=== PATIENT | male | born 1955 | race Caucasian/White ===

== ENCOUNTER → 2017-05-02 | Outpatient (CLI) | payer OTHER ==
--- NOTE | 2017-05-02 19:21 | CARD ---
APPROVED REPORT EXAM: Two-dimensional and M-mode echocardiogram with Doppler and color Doppler. Other Information Quality : Good INDICATION Cardiac Disease: CAD Congestive Heart Failure 2D DIMENSIONS Left Atrium(2D)3.7 (1.6-4.0cm)IVSd1.0 (0.7-1.1cm) Aortic Root(2D)2.6 (2.0-3.7cm)LVDd5.1 (3.9-5.9cm) LVOT Diameter2.1 (1.8-2.4cm)PWd1.0 (0.7-1.1cm) LVDs4.1 (2.5-4.0cm)FS (%) 19.6 % SV49.5 ml Aortic Valve AoV Peak Sekou.147.4cm/sAoV VTI26.7cm AO Peak GR.8.7mmHgLVOT Peak Sekou.101.5cm/s AO Mean GR.4mmHgAVA (VMAX)2.35cm2 TEVIN (VTI)2.50cm2 Mitral Valve MV E Olejgqdl45.6cm/sMV DECEL [id number] MV A Ohhkvgte89.2cm/sE/A Ratio0.8 Tricuspid Valve TR P. Nnvhnyma068zl/sRAP OLXQOAJS6whDa TR Peak Gr.[id number] Pulmonary Vein S1 Bupkhbio66.4cm/sD2 Fyqqgslf96.3cm/s LEFT VENTRICLE The left ventricle is normal size. There is normal left ventricular wall thickness. Left ventricle sy stolic function is mildly impaired. The Ejection Fraction is 40-45%. There is hypokinesis in the apex and apical septal wall. Transmitral Doppler flow pattern is Grade I-abnormal relaxation pattern. RIGHT VENTRICLE The right ventricle is normal size. The right ventricular systolic function is normal. ATRIA The left atrium size is normal. The right atrium size is normal. The interatrial septum is intact wit h no evidence for an atrial septal defect or patent foramen ovale as noted on 2-D or Doppler imaging. AORTIC VALVE The aortic valve is calcified but opens well. Doppler and Color Flow revealed no significant aortic r egurgitation. There is no significant aortic valvular stenosis. MITRAL VALVE The mitral valve is calcified but opens well. There is no evidence of mitral valve prolapse. There is no mitral valve stenosis. Doppler and Color Flow revealed no mitral valve regurgitation noted. TRICUSPID VALVE The tricuspid valve is normal in structure and function. Doppler and Color Flow revealed mild tricusp id regurgitation. The PA pressure was estimated at 21 mmHg. There is no tricuspid valve stenosis. PULMONIC VALVE The pulmonary valve is normal in structure and function. Doppler and Color Flow revealed no pulmonic valvular regurgitation. There is no pulmonic valvular stenosis. GREAT VESSELS The aortic root is normal in size. The ascending aorta is normal in size. The IVC is normal in size a nd collapses >50% with inspiration. PERICARDIAL EFFUSION There is no pleural effusion. There is no evidence of significant pericardial effusion. Critical Notification Critical Value: No <Conclusion> The left ventricle is normal size. Left ventricle systolic function is mildly impaired. The Ejection Fraction is 40-45%. There is hypokinesis in the apex and apical septal wall. There is no significant aortic valvular stenosis. Doppler and Color Flow revealed no significant aortic regurgitation. Doppler and Color Flow revealed no mitral valve regurgitation noted. Doppler and Color Flow revealed mild tricuspid regurgitation. The PA pressure was estimated at 21 mmHg.
== END | disposition home or self-care (01) ==
LOC: ECHO 10:32
PROVIDERS: ATTEND Internal Medicine Cardiovascular Disease
DX: I25.10 Atherosclerotic heart disease of native coronary artery without angina pectoris (principal); I50.9 Heart failure, unspecified; I07.1 Rheumatic tricuspid insufficiency
CPT/HCPCS: 93306

== ENCOUNTER → 2017-06-09 | Day surgery (SDC) | payer OTHER ==
[~2017-06-09] MED LIST: HYDROmorphone 2 MG/ML VIAL IV; LIDOCAINE 1% PF 2 ML VIAL. ID; MORPHINE SULFATE 2 MG/ML DISP.SYRIN. IV; ONDANSETRON PF 4 MG/2 ML VIAL. IV; PROCHLORPERAZINE 10 MG/2 ML VIAL. IV; PROPOFOL 20 ML IV; fentaNYL PF VIAL 100 MCG/2 ML VIAL IV
[2017-06-09] MEDS: IV RINGERS,LACTATED 1000ML 1,000 ML IV (12:32)
== END | disposition home or self-care (01) ==
LOC: ENDOS 12:02
DX: Z09 Encounter for follow-up examination after completed treatment for conditions other than malignant neoplasm (principal); Z86.010 Personal history of colon polyps; K64.0 First degree hemorrhoids; E78.00 Pure hypercholesterolemia, unspecified; I10 Essential (primary) hypertension; I25.2 Old myocardial infarction; Z72.89 Other problems related to lifestyle
CPT/HCPCS: 45378; J2704

== ENCOUNTER → 2021-11-19 | Outpatient (CLI) | payer MEDICARE, OTHER ==
[2017-06-09 13:44] VITALS: BP 117/68
[~2021-11-19] MED LIST changes: +ASPI-482 PO; +ATOR20TA58 PO; +CETI10TA74 PO; -HYDROmorphone 2 MG/ML VIAL IV; -LIDOCAINE 1% PF 2 ML VIAL. ID; +LISI10TA16 PO; +METO-239 PO; +MONT10TA49 PO; -MORPHINE SULFATE 2 MG/ML DISP.SYRIN. IV; -ONDANSETRON PF 4 MG/2 ML VIAL. IV; -PROCHLORPERAZINE 10 MG/2 ML VIAL. IV; -PROPOFOL 20 ML IV; -fentaNYL PF VIAL 100 MCG/2 ML VIAL IV
--- NOTE | 2021-11-19 15:31 | KCIC ---
Examination: MRI of the pelvis without contrast HISTORY: History of left gluteal mass, left hip pain COMPARISON: None available TECHNIQUE: Multiplanar, multisequence MR imaging of the pelvis were performed without contrast FINDINGS: The bilateral femoral heads within the acetabula. The attachment of the hamstring tendon to the ischi al tuberosity, attachment of the gluteal tendons to the greater trochanter, attachment of the iliopso as tendon to the lesser trochanter and the attachment of the rectus femoris tendon to the anterior in ferior iliac spine grossly appears intact. The muscle bulk grossly appears unremarkable. No definite evidence of mass or lesion visualized in the medial region. Moderate to severe joint space loss bilat erally likely degenerative changes IMPRESSION: 1. 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 2. No evidence of gluteal mass or lesion. Electronically signed by: Dimitri Ruby MD (11/19/2021 3:29 PM) [id number]
== END ==
LOC: KCIC MRI 13:41
PROVIDERS: ATTEND Orthopaedic Surgery
DX: M16.0 Bilateral primary osteoarthritis of hip (principal); M25.552 Pain in left hip
CPT/HCPCS: 72195